=== PATIENT | female | born 1975 | race Caucasian/White ===

== ENCOUNTER 2022-01-01 10:30 | Outpatient (CLI) | payer BC, SELFPAY ==
--- NOTE | 2022-01-01 10:45 | CRLHL7_ITS ---
For Patients: As a result of the Century Cures Act, medical imaging exams and procedure reports are released immediately into your electronic medical record. You may view this report before your referring provider. If you have questions, please contact your health care provider. BILATERAL DIGITAL SCREENING MAMMOGRAM WITH TOMOSYNTHESIS AND COMPUTER-AIDED DETECTION, 01/01/2022 CLINICAL HISTORY: Routine screening exam. COMPARISON: 09/16/2020, 08/18/2019, 01/21/2018, 10/25/2016. TECHNIQUE: Digital mammogram in CC and MLO projections including computer-aided detection (CAD). Tomosynthesis utilized. BREAST COMPOSITION: The breasts are heterogeneously dense which may obscure small masses. FINDINGS: RIGHT Breast: No suspicious findings. LEFT Breast: Focal asymmetric density just lateral to the retroareolar plane 7 cm from the nipple. IMPRESSION: LEFT breast asymmetry/mass. ASSESSMENT: BI-RADS Category 0: Incomplete: Need Additional Imaging Evaluation RECOMMENDATIONS: Additional mammographic views of the LEFT breast including 3D spot compression CC/MLO. LEFT breast ultrasound may also be required. The [facility] will be contact the patient for follow-up. A lay language report of this examination will be provided to the patient. Dictated by Hayes Cox MD @ 01/01/2022 12:50:07 PM danikaj/Dictated by: Hayes Cox MD @ 01/01/2022 12:49:00 PM (Electronically Signed)
== END 2022-01-01 10:31 | disposition home or self-care (01) ==
LOC: MAMMO 10:31
PROVIDERS: Visit Provider Obstetrics & Gynecology
DX: Z12.31 Encounter for screening mammogram for malignant neoplasm of breast (principal); N63.20 Unspecified lump in the left breast, unspecified quadrant
CPT/HCPCS: 77063; 77067

== ENCOUNTER 2022-01-05 08:38 | Outpatient (CLI) | payer BC, SELFPAY ==
--- NOTE | 2022-01-05 08:45 | CRLHL7_ITS ---
For Patients: As a result of the Cures Act, medical imaging exams and procedure reports are released immediately into your electronic medical record. You may view this report before your referring provider. If you have questions, please contact your health care provider. DIGITAL DIAGNOSTIC LEFT MAMMOGRAM USING TOMOSYNTHESIS AND COMPUTER-AIDED DETECTION, 01/05/2022 LEFT BREAST ULTRASOUND, 01/05/2022 CLINICAL HISTORY: LEFT breast mass/asymmetry. COMPARISON: 01/21/2018, 08/18/2027, 09/16/2020, 01/01/2022. TECHNIQUE: Digital LEFT mammogram in 2 projections. Real-time ultrasound imaging of LEFT breast with imaging documentation. Scanning was performed by both the technologist and the radiologist. BREAST COMPOSITION: The breast is heterogeneously dense, which may obscure small masses. FINDINGS: 3D spot compression CC/MLO LEFT breast mammogram submitted. The dense fibroglandular tissue within the posterior LEFT breast is similar to the 08/18/19 examination with multiple nodular areas of normal breast tissue. A benign calcification is present laterally. No adenopathy. The MLO spot compression films are completely normal. Targeted LEFT breast ultrasound at the posterior LEFT breast slightly upper-outer quadrant retroareolar plane performed. Normal dense fibroglandular tissue is present without shadowing. This appears similar to tissue elsewhere throughout the LEFT breast. IMPRESSION: No evidence of malignancy. Chronic dense fibroglandular tissue deep LEFT breast slightly lateral without evidence of malignancy. RECOMMENDATIONS: Annual bilateral screening mammography. BI-RADS Category 2: Benign Results and recommendations discussed with the patient. Dictated by Hayes Cox MD @ 01/05/2022 1:51:01 PM PT/Dictated by: Hayes Cox MD @ 01/05/2022 1:51:00 PM (Electronically Signed)
--- NOTE | 2022-01-05 09:15 | CRLHL7_ITS ---
For Patients: As a result of the Century Cures Act, medical imaging exams and procedure reports are released immediately into your electronic medical record. You may view this report before your referring provider. If you have questions, please contact your health care provider. PLEASE SEE LEFT DIAGNOSTIC MAMMOGRAM OF SAME DAY. CRL:[place] PT/Dictated by: Hayes Cox MD @ 01/05/2022 1:51:00 PM (Electronically Signed)
== END 2022-01-05 08:39 | disposition home or self-care (01) ==
LOC: MAMMO 08:39
PROVIDERS: Visit Provider Obstetrics & Gynecology
DX: N63.20 Unspecified lump in the left breast, unspecified quadrant (principal); R92.8 Other abnormal and inconclusive findings on diagnostic imaging of breast
CPT/HCPCS: 76642; 77066; G0279